=== PATIENT | female | born 1975 | race Caucasian/White ===

== ENCOUNTER 2017-09-26 17:39 | Emergency (ER) | payer MEDICAID, SELFPAY ==
[2017-09-26 17:39] VITALS: BP 145/83; PULSE 81; RESP 16; TEMP 36.8; O2SAT 99; BMI 28.4
[2017-09-26 19:15] LABS: Absolute Lymphocyte Count 3.09 X10^3/ul (0.83-4.51); Absolute Neutrophil Count 8.3 X10^3/uL (2.0-7.7); Basophil# 0.04 X10^3/uL; Basophil% 0.3 % (0-1); Eosinophil# 0.14 X10^3/uL; Eosinophils% 1.1 % (0-5); Hematocrit 43.7 % (37-47); Hemoglobin 15.1 g/dl (12.0-15.0); Lymphocyte # 3.09 X10^3/ul (4.0); Lymphocyte % 25.2 % (19-41); Mean Corp Hgb Conc 34.6 g/gl (32-36); Mean Corpuscular Hgb 30.9 pg (27.0-32.0); Mean Corpuscular Volume 89.4 fL (81-99); Mean Platelet Vol. 10.6 fl (6.2-12.0); Monocyte# 0.68 X10^3/uL; Monocyte% 5.5 % (0-10); Neutrophil # 8.25 X10^3/uL (2.7-7.7); Neutrophil % 67.4 % (47-70); Platelet Count 296 K/mm3 (150-450); RBC Distribution Width CV 13.9 % (11.6-14.6); RBC Distribution Width SD 45.5 fl (35.1-43.9); Red Blood Count 4.89 M/mm3 (4.2-5.4); White Blood Count 12.3 K/mm3 (4.4-11.0)
[2017-09-26 19:19] LABS: POSITIVE COUNT NO; POSITIVE DIFFERENTIAL NO; POSITIVE MORPHOLOGY NO
[2017-09-26 19:38] LABS: AST(SGOT) 16 U/L (15-37); Alanine Aminotransfer ALT/SGPT 15 U/L (13-56); Albumin, Serum 3.5 g/dL (3.2-5.0); Alkaline Phosphatase 87 U/L (45-117); Anion Gap 7 (5-15); BUN 6 mg/dL (7-18); BUN/Creat Ratio 6.8 RATIO (10-20); Bilirubin, Direct 0.08 mg/dL (0.00-0.30); Calcium,Total 8.7 mg/dL (8.5-10.1); Chloride 100 mmol/L (98-107); Creatinine, Serum 0.88 mg/dL (0.55-1.02); EST Glomerular Filtration Rate 76 mL/min (>60); Est Glom Filt Rate - Afr Amer 92 mL/min (>60); Estimated Creatinine Clearance 80.35 ml/min; Globulin 4.2 g/dL (2.2-4.2); Glucose 120 mg/dL (74-106); Lipase 172 U/L (73-393); Potassium 2.9 mmol/L (3.5-5.1); Protein, Total 7.7 g/dL (6.4-8.2); Sodium Level 135 mmol/L (136-145)
[2017-09-26 21:16] VITALS: BP 123/87; PULSE 63; RESP 18; O2SAT 98
--- NOTE | 2017-09-26 21:59 | ED.RN ---
pt WAS SEEN LEAVING ED WITH SPOUSE AT 2158. NO IV WAS FOUND IN ROOM OR IN TRASH. [facility] NURSE NOTIFIED.
--- NOTE | 2017-09-26 22:03 | ED.VISSUMM ---
- ER Visit Summary Date of Service: 09/26/17 Chief Complaint: Right upper quadrant/epigastric pain since August History of Present Illness: The patient is a 41 F resents with nausea, vomiting and dry heaves with right upper quadrant pain and epigastric pain since August. She has had an outpatient ultrasound which was interpreted as negative. She denies fever, chills night sweats. Denies weight loss or weight gain. She denies any visual, ocular or auditory symptoms. She denies chest pain palpitations or rapid heart rate. She denies shortness of breath, difficulty breathing, cough, dyspnea on exertion orthopnea. She denies dysuria, frequency, urgency hematuria. She denies myalgias arthralgias. She denies rash. She denies headache or paresthesia. She does complain of weakness. He does have history of depression. She denies polyuria, polydipsia or polyphagia. She denies any allergic type symptoms. Physical Examination: Vital signs are remarkable elevated blood pressure 145/83. Head is atraumatic normocephalic. Pupils are equal round reactive. Extraocular muscles are intact. TMs are pearly white with landmarks noted. Nares patent with no drainage. Posterior pharynx without erythema or exudate. Uvula is midline. There is no dysphonia or dysphasia. Mucosa is dry. Trachea is midline. There is no stridor with auscultation of the neck. Heart is regular without murmur, gallop or rub. S1 and S2 are normal. Lungs are clear to auscultation with good movement of air bilaterally. Patient has pain in the right upper quadrant with negative Madrid sign. There is no palpable subtle mass or abdominal bruit noted. There is no hepatomegaly. There is no CVA tenderness noted. There is no skin lesion to suggest herpes varicella-zoster. Patient is alert and oriented ?3. Motor is 5 over 5. Sensory is intact. DTRs are symmetric with no clonus or Babinski sign. Cranial 2 through 12 are intact. Cerebellar testing is normal. Test Results: Hepatic profile is normal. Electrode profile is remarkable for a potassium of 2.9. CBC is unremarkable. Emergency Department Course and Treatment: Normal saline wide open ?1 L. Because of the right upper quadrant pain hepatic and lipase were ordered as well as a CBC and BMP since there is a history of hypokalemia. Treatment Plan: Her workup was unremarkable. Patient is upset and began to cry. She is frustrated because no one can find the cause of her pain for the past 2 months. I informed her that she should look at it that nothing serious was found. She began to cry more. She was told if she has intolerance to greasy food her physician could order a HIDA scan as an outpatient. That is not a test we normally ordered through the emergency department. Disposition: Discharge to home Impression: 1. Right upper quadrant/epigastric pain with nausea vomiting unknown etiology 2. Hypokalemia 3. History of hypertension 4. History of depression This note was generated with [employer] dictation software. It may contain incorrect words, spelling, and punctuation that were not noted in review of the chart prior to signing ED Disposition - Plan for ED Patient: Disposition: Home or Assisted Living Chief Complaint: Abd Pain Instructions: ED Abdominal Pain Unkn Cause Referrals: Lori Elmore PA [Primary Care Provider] - As Needed
--- NOTE | 2017-09-26 22:07 | ED.DCSUM_ITS ---
- ER Visit Summary Date of Service: 09/26/17 Chief Complaint: Right upper quadrant/epigastric pain since August History of Present Illness: The patient is a 41 F resents with nausea, vomiting and dry heaves with right upper quadrant pain and epigastric pain since August. She has had an outpatient ultrasound which was interpreted as negative. She denies fever, chills night sweats. Denies weight loss or weight gain. She denies any visual, ocular or auditory symptoms. She denies chest pain palpitations or rapid heart rate. She denies shortness of breath, difficulty breathing, cough, dyspnea on exertion orthopnea. She denies dysuria , frequency, urgency hematuria. She denies myalgias arthralgias. She denies rash. She denies headache or paresthesia. She does complain of weakness. He does have history of depression. She denies polyuria, polydipsia or polyphagia. She denies any allergic type symptoms. Physical Examination: Vital signs are remarkable elevated blood pressure 145/ 83. Head is atraumatic normocephalic. Pupils are equal round reactive. Extraocular muscles are intact. TMs are pearly white with landmarks noted. Nares patent with no drainage. Posterior pharynx without erythema or exudate. Uvula is midline. There is no dysphonia or dysphasia. Mucosa is dry. Trachea is midline. There is no stridor with auscultation of the neck. Heart is regular without murmur, gallop or rub. S1 and S2 are normal. Lungs are clear to auscultation with good movement of air bilaterally. Patient has pain in the right upper quadrant with negative Madrid sign. There is no palpable subtle mass or abdominal bruit noted. There is no hepatomegaly. There is no CVA tenderness noted. There is no skin lesion to suggest herpes varicella-zoster. Patient is alert and oriented ?3. Motor is 5 over 5. Sensory is intact. DTRs are symmetric with no clonus or Babinski sign. Cranial 2 through 12 are intact. Cerebellar testing is normal. Test Results: Hepatic profile is normal. Electrode profile is remarkable for a potassium of 2.9. CBC is unremarkable. Emergency Department Course and Treatment: Normal saline wide open ?1 L. Because of the right upper quadrant pain hepatic and lipase were ordered as well as a CBC and BMP since there is a history of hypokalemia. Treatment Plan: Her workup was unremarkable. Patient is upset and began to cry. She is frustrated because no one can find the cause of her pain for the past 2 months. I informed her that she should look at it that nothing serious was found. She began to cry more. She was told if she has intolerance to greasy food her physician could order a HIDA scan as an outpatient. That is not a test we normally ordered through the emergency department. Disposition: Discharge to home Impression: 1. Right upper quadrant/epigastric pain with nausea vomiting unknown etiology 2. Hypokalemia 3. History of hypertension 4. History of depression This note was generated with [employer] dictation software. It may contain incorrect words, spelling, and punctuation that were not noted in review of the chart prior to signing ED Disposition - Plan for ED Patient: Disposition: Home or Assisted Living Chief Complaint: Abd Pain Instructions: ED Abdominal Pain Unkn Cause Referrals: Lori Elmore PA [Primary Care Provider] - As Needed
--- NOTE | 2017-09-26 22:10 | ED.RN ---
Police have been called to verify IV is not in pts left hand as documented.
--- NOTE | 2017-09-26 22:16 | NURSING ---
CALLED [facility], SPOKE TO GLEN, REQUESTED BY KURT DENNY THEY WILL ATTEMPT TO FIND THIS PT TO CONFIRM THE REMOVAL OF HER IV.
--- NOTE | 2017-09-26 22:48 | NURSING ---
[facility] CALLED BACK, HE CHECKED THIS PT AND STATED THE IV WAS PULLED OUT OF HER HAND
== END 2017-09-26 22:11 | disposition home or self-care (01) ==
PROVIDERS: Emergency Provider Emergency Medicine; Family Provider Physician Assistant Medical; PCP Physician Assistant Medical
DX: R10.11 Right upper quadrant pain (principal); R10.13 Epigastric pain; E87.6 Hypokalemia; I10 Essential (primary) hypertension; R11.2 Nausea with vomiting, unspecified; K21.9 Gastro-esophageal reflux disease without esophagitis; F32.9 Major depressive disorder, single episode, unspecified; Z79.899 Other long term (current) drug therapy
CPT/HCPCS: 80048; 80076; 83690; 85025; 99284; A4216

== ENCOUNTER → 2017-10-24 14:10 | Outpatient (CLI) | payer MEDICAID, SELFPAY ==
[2017-10-24 14:20] LABS: Bacteria 0 SEEN /hpf (None Seen); Mucous, Urine 0 SEEN /hpf (<or=2+)
[2017-10-24 15:42] LABS: Color, Urine Yellow (Yellow); Glucose, Dipstick Normal (Normal); Ketone-Dipstick Negative (Negative); Leukocyte Esterase-Dipstick Negative /ul (Negative); Nitrite-Dipstick Negative (Negative); Occult Blood-Urine 10 /ul (Negative); Protein-Dipstick Negative (Negative); Specific Gravity, Urine 1.005 (1.002-1.030); Urine Bilirubin Dipstick Negative (Negative); Urine Clarity Sl. Cloudy (Clear); Urine Urobilinogen Normal (Normal)
[2017-10-24 15:48] LABS: Squamous Epithelial Cells - UA 0-5 SEEN /hpf (5-10)
[2017-10-24 15:52] LABS: Red Blood Cells-Urine 0-5 SEEN /hpf (0-5); White Blood Cells 0-5 SEEN /hpf (0-5)
[2017-10-26 14:34] LABS: H. Pylori Antibody (IgG) 0.25 (0.00-0.79)
== END ==
PROVIDERS: Family Provider Physician Assistant Medical; PCP Physician Assistant Medical; Visit Provider Surgery
DX: R10.9 Unspecified abdominal pain (principal)
CPT/HCPCS: 36415; 81001; 86677